=== PATIENT | female | born 1970 | race Caucasian/White ===

== ENCOUNTER 2017-11-11 13:44 | Observation (INO) | payer OTHER ==
[2017-11-11 13:50] VITALS: BP 105/58; PULSE 80; RESP 18; TEMP 97.4; O2SAT 100
--- NOTE | 2017-11-11 15:21 | RADRPT ---
EXAM DATE/TIME: 11/11/2017 14:35 [facility] COMPARISON: No previous studies available for comparison. INDICATIONS : Right sided facial numbness. RADIATION DOSE: 41.64 CTDIvol (mGy) MEDICAL HISTORY : None SURGICAL HISTORY : None. ENCOUNTER: Initial ACUITY: 1 day PAIN SCALE: 0/10 LOCATION: cranial TECHNIQUE: Multiple contiguous axial images were obtained of the head. Using automated exposure control and adj ustment of the mA and/or kV according to patient size, radiation dose was kept as low as reasonably a chievable to obtain optimal diagnostic quality images. DICOM format image data is available electro nically for review and comparison. FINDINGS: CEREBRUM: The ventricles are normal for age. No evidence of midline shift, mass lesion, hemorrhage or acute in farction. No extra-axial fluid collections are seen. POSTERIOR FOSSA: The cerebellum and brainstem are intact. The 4th ventricle is midline. The cerebellopontine angle i s unremarkable. EXTRACRANIAL: The visualized portion of the orbits is intact. SKULL: The calvaria is intact. No evidence of skull fracture. CONCLUSION: Negative for acute process. Edgar Larry MD FACR on November 11, 2017 at 15:18 Board Certified Radiologist. This report was verified electronically.
[2017-11-11 15:42] LABS: BASOPHIL # 0.1 TH/MM3 (0-0.2); BASOPHIL % 1.9 % (0.0-2.0); EOSINOPHIL # 0.3 TH/MM3 (0-0.4); EOSINOPHIL % 4.4 % (0.0-4.0); HEMATOCRIT 40.4 % (35.0-46.0); HEMOGLOBIN 13.6 GM/DL (11.6-15.3); LYMPH % 19.5 % (9.0-44.0); LYMPHOCYTE # 1.2 TH/MM3 (1.0-4.8); MEAN CELL VOLUME 91.3 FL (80.0-100.0); MEAN CORPUSCULAR HEMOGLOBIN 30.7 PG (27.0-34.0); MEAN CORPUSCULAR HGB CONC 33.7 % (32.0-36.0); MEAN PLATELET VOLUME 7.8 FL (7.0-11.0); MONO % 7.6 % (0.0-8.0); MONOCYTE # 0.5 TH/MM3 (0-0.9); NEUT % 66.6 % (16.0-70.0); PLATELET COUNT 400 TH/MM3 (150-450); RED BLOOD COUNT 4.42 MIL/MM3 (4.00-5.30); RED CELL DISTRIBUTION WIDTH 14.3 % (11.6-17.2)
[2017-11-11 15:54] LABS: INTERNATIONAL NORMALIZED RATIO 1.1 RATIO; PROTHROMBIN TIME - PATIENT 10.7 SEC (9.8-11.6)
[2017-11-11 16:03] LABS: ALBUMIN 3.8 GM/DL (3.4-5.0); ALT (GPT) 21 U/L (10-53); AST (GOT) 16 U/L (15-37); BICARBONATE 28.4 MEQ/L (21.0-32.0); BLOOD UREA NITROGEN 15 MG/DL (7-18); CALCIUM 8.8 MG/DL (8.5-10.1); CHLORIDE 102 MEQ/L (98-107); CREATININE 0.98 MG/DL (0.50-1.00); GLOMERULAR FILTRATION RATE 61 ML/MIN (>89); GLUCOSE,RANDOM 82 MG/DL (74-106); SODIUM (NA) 138 MEQ/L (136-145)
[2017-11-11 16:06] LABS: ALKALINE PHOSPHATASE 61 U/L (45-117); TOTAL BILIRUBIN ADULT 0.3 MG/DL (0.2-1.0); TOTAL PROTEIN 7.5 GM/DL (6.4-8.2); TROPONIN I LESS THAN 0.02 NG/ML (0.02-0.05)
[2017-11-11] MEDS ORDERED: DULO1CAP3 PO (18:12)
[2017-11-11] MEDS ORDERED: TOPA50TA7 PO (18:12)
[2017-11-11] MEDS ORDERED: WELLTAB39 PO (18:12)
[2017-11-11] MEDS ORDERED: CLON0.5T PO (18:13)
[2017-11-11] MEDS ORDERED: SUMA6INJ17 SQ (18:13)
[2017-11-11 18:14] VITALS: BP 107/58; PULSE 70; RESP 16; TEMP 97.8; O2SAT 99
--- NOTE | 2017-11-11 19:08 | PD ---
HPI Chief Complaint: Numbness/Tingling Time Seen by Provider: 18:24 Travel History International Travel<30 days: No Contact w/Intl Traveler<30days: No Traveled to known affect area: No History of Present Illness HPI 47-year-old female complains of slurred speech and right-sided facial weakness. Patient has history of migraine. Patient started noticing mild slurring the speech yesterday afternoon. Patient states that she was having weakness of the tongue. Patient states that she noticed right-sided facial drooping around the corner of the mouth this morning. Patient states that she has mild aching headache for last several days. Patient denies any visual change. Patient denies any neck pain. Patient denies any chest pain or shortness of breath. Patient denies abdominal pain. Patient denies any other focal weakness or numbness of the extremity. Patient had Botox injection for bilateral TMJ November 02. Patient last use of Imitrex for headache on the of this month. Patient denies a history of TIA or CVA. Patient denies history hypertension, diabetes, lymphedema. Patient is a non-smoker. PFSH Past Medical History Cerebrovascular Accident: No Diminished Hearing: No Neurologic: Yes Migraines: Yes Tetanus Vaccination: > 5 Years Influenza Vaccination: Yes ?: Not LMP: / : 0 Social History Alcohol Use: Yes (rare) Tobacco Use: No Substance Use: No Allergies-Medications (Allergen,Severity, Reaction): Coded Allergies: No Known Allergies (Unverified , 11/11/17) Reported Meds & Prescriptions Reported Meds & Active Scripts Active Reported Clonazepam 0.5 Mg Tab 0.5 Mg PO DAILY Sumatriptan Inj (Sumatriptan Succinate) 6 Mg/0.5 Ml Inj 6 Mg SQ ONCE PRN May repeat dose in 1 hour if needed. Duloxetine DR (Duloxetine HCl) 60 Mg Capdr 60 Mg PO DAILY Wellbutrin Xl 24 HR (Bupropion HCl) 300 Mg Tab 300 Mg PO DAILY Topamax (Topiramate) 50 Mg Tab 50 Mg PO DAILY Review of Systems General / Constitutional: No: Fever Eyes: No: Visual changes HENT: No: Headaches Cardiovascular: No: Chest Pain or Discomfort Respiratory: No: Shortness of Breath Gastrointestinal: No: Abdominal Pain Genitourinary: No: Dysuria Musculoskeletal: No: Pain Skin: No Rash Neurologic: Positive: Weakness, Slurred Speech Psychiatric: No: Depression Endocrine: No: Polydipsia Hematologic/Lymphatic: No: Easy Bruising Physical Exam Narrative GENERAL: Well-nourished, well-developed patient. SKIN: Focused skin assessment warm/dry. HEAD: Normocephalic. EYES: No scleral icterus. No injection or drainage. NECK: Supple, trachea midline. No JVD or lymphadenopathy. CARDIOVASCULAR: Regular rate and rhythm without murmurs, gallops, or rubs. RESPIRATORY: Breath sounds equal bilaterally. No accessory muscle use. GASTROINTESTINAL: Abdomen soft, non-tender, nondistended. MUSCULOSKELETAL: No cyanosis, or edema. BACK: Nontender without obvious deformity. No CVA tenderness. Neurologic exam normal.: Patient is awake alert oriented 3. Patient has some mild weakness right-sided corner of the mouth. Visual field intact. No obvious focal neurologic of the extremity. Data Data Last Documented VS Vital Signs Date Time Temp Pulse Resp B/P (MAP) Pulse Ox O2 Delivery O2 Flow Rate FiO2 11/11/17 18:14 97.8 70 16 107/58 (74) 99 Room Air Orders Orders Electrocardiogram (11/11/17 13:54) Prothrombin Time / Inr (Pt) (11/11/17 13:54) Act Partial Throm Time (Ptt) (11/11/17 13:54) Complete Blood Count With Diff (11/11/17 13:54) Comprehensive Metabolic Panel (11/11/17 13:54) Creatine Kinase (Cpk) (11/11/17 13:54) Troponin I (11/11/17 13:54) Ct Brain W/O Iv Contrast(Rout) (11/11/17 13:54) Mri Brain W/O Contrast (11/11/17 18:41) Mra Brain W/O Contrast (Cow) (11/11/17 18:41) Mra Carotids W Contrast (11/11/17 18:41) Labs Laboratory Tests Test 11/11/17 14:07 White Blood Count 6.0 TH/MM3 Red Blood Count 4.42 MIL/MM3 Hemoglobin 13.6 GM/DL Hematocrit 40.4 % Mean Corpuscular Volume 91.3 FL Mean Corpuscular Hemoglobin 30.7 PG Mean Corpuscular Hemoglobin Concent 33.7 % Red Cell Distribution Width 14.3 % Platelet Count 400 TH/MM3 Mean Platelet Volume 7.8 FL Neutrophils (%) (Auto) 66.6 % Lymphocytes (%) (Auto) 19.5 % Monocytes (%) (Auto) 7.6 % Eosinophils (%) (Auto) 4.4 % Basophils (%) (Auto) 1.9 % Neutrophils # (Auto) 4.0 TH/MM3 Lymphocytes # (Auto) 1.2 TH/MM3 Monocytes # (Auto) 0.5 TH/MM3 Eosinophils # (Auto) 0.3 TH/MM3 Basophils # (Auto) 0.1 TH/MM3 CBC Comment DIFF FINAL Differential Comment Prothrombin Time 10.7 SEC Prothromb Time International Ratio 1.1 RATIO Activated Partial Thromboplast Time 25.7 SEC Blood Urea Nitrogen 15 MG/DL Creatinine 0.98 MG/DL Random Glucose 82 MG/DL Total Protein 7.5 GM/DL Albumin 3.8 GM/DL Calcium Level 8.8 MG/DL Alkaline Phosphatase 61 U/L Aspartate Amino Transf (AST/SGOT) 16 U/L Alanine Aminotransferase (ALT/SGPT) 21 U/L Total Bilirubin 0.3 MG/DL Sodium Level 138 MEQ/L Potassium Level 3.7 MEQ/L Chloride Level 102 MEQ/L Carbon Dioxide Level 28.4 MEQ/L Anion Gap 8 MEQ/L Estimat Glomerular Filtration Rate 61 ML/MIN Total Creatine Kinase 78 U/L Troponin I LESS THAN 0.02 NG/ML MDM Medical Decision Making Medical Screen Exam Complete: Yes Emergency Medical Condition: Yes Differential Diagnosis Differential diagnosis including TIA, CVA, complex migraine, neuropathy. Narrative Course 47-year-old female with slurred speech and right-sided facial weakness. Aspirin 325 mg p.o. given. Normal saline solution 100 cc an hour. Head of bed 30. I spoke with Dr. Denney, neurologist on-call. We will proceed with MRI, MRA and echocardiogram. Patient will be admitted to the medical service. Thomas Whitt MD Nov 11, 2017 19:08
--- NOTE | 2017-11-11 19:29 | EKG ---
Date Performed: 11/11/2017 Time Performed: 14:03:06 PTAGE: 47 years EKG: Sinus rhythm Right bundle branch block ABNORMAL ECG NO PREVIOUS TRACING DOCTOR: Richard Lorenz Interpretating Date/Time 11/11/2017 19:28:32
[2017-11-11] MEDS ORDERED: GADODIAMIDE PF 287 MG/ML 20 ML VIAL (for RAD MRI) IVCONTRAST ONE (19:59)
[2017-11-11 20:41] VITALS: BP 114/69; PULSE 82; RESP 16; O2SAT 100
--- NOTE | 2017-11-11 20:42 | RADRPT ---
EXAM DATE/TIME: 11/11/2017 19:37 [facility] COMPARISON: No previous studies available for comparison. INDICATIONS : CVA. Right facial droop. MEDICAL HISTORY : Migraines. SURGICAL HISTORY : Toe fusion. ENCOUNTER: Subsequent ACUITY: 1 day PAIN SCORE: 3/10 LOCATION: head. TECHNIQUE: Multiplanar, multisequence MRI of the brain was performed without contrast. FINDINGS: CEREBRUM: The ventricles are normal for age. No evidence of midline shift, mass lesion, hemorrhage or acute in farction. No extraaxial fluid collections are seen. The pituitary gland and suprasellar cistern are normal in configuration. WHITE MATTER: Minimal signal abnormalities are seen in the white matter. POSTERIOR FOSSA: The cerebellum and brainstem are intact. The 4th ventricle is midline. The cerebellopontine angle is unremarkable. The cerebellar tonsils are normal in position. DIFFUSION IMAGING: No focal areas of restricted diffusion are seen. No evidence of acute infarction. EXTRACRANIAL: The visualized portions of the orbits and paranasal sinuses are unremarkable. CONCLUSION: 1. No acute findings. No evidence for recent infarction. Several scattered tiny white matter signal a bnormalities commonly seen at this age. Mike Angel MD on November 11, 2017 at 20:35 Board Certified Radiologist. This report was verified electronically.
--- NOTE | 2017-11-11 21:07 | RADRPT ---
EXAM DATE/TIME: 11/11/2017 19:37 [facility] COMPARISON: No previous studies available for comparison. INDICATIONS : Stenosis. CONTRAST: 20 cc Omniscan (gadodiamide) IV MEDICAL HISTORY : Migraines. SURGICAL HISTORY : Toe fusion. ENCOUNTER: Subsequent ACUITY: 1 day PAIN SCORE: 0/10 LOCATION: neck. Percent stenosis is calculated using the diameter of the stenotic region over the diameter of the nor mal distal internal carotid artery. TECHNIQUE: Bolus infused MRA of the extracranial circulation was performed using a neurovascular coil. Post pro cessing was performed including rotating subvolume maximum intensity projections of each carotid peterson ry, rotating full volume maximum intensity projections of both carotid arteries, sagittal and coronal sliding thin slab reformations of each carotid artery, and left oblique sliding thin slab reformatio n through the aortic arch to include the origin of the arch branch vessels. FINDINGS: AORTIC ARCH: There is a three vessel origin of the great vessels from the aorta. No evidence of ostial narrowing. RIGHT CAROTID: The common carotid artery is intact. The carotid bulb has a normal configuration without ulceration or narrowing. The internal carotid artery lumen is smooth without stenosis. The external carotid ar judy is intact. LEFT CAROTID: The common carotid artery is intact. The carotid bulb has a normal configuration without ulceration or narrowing. The internal carotid artery lumen is smooth without stenosis. The external carotid ar judy is intact. VERTEBRALS: The vertebral arteries have a symmetric diameter. No stenotic lesions are seen. CONCLUSION: Normal examination for a patient of this age. Mike Angel MD on November 11, 2017 at 21:03 Board Certified Radiologist. This report was verified electronically.
--- NOTE | 2017-11-11 21:08 | RADRPT ---
EXAM DATE/TIME: 11/11/2017 19:37 [facility] COMPARISON: No previous studies available for comparison. INDICATIONS : CVA. Right facial droop. MEDICAL HISTORY : Migraines. SURGICAL HISTORY : Toe fusion. ENCOUNTER: Subsequent ACUITY: 1 day PAIN SCORE: 3/10 LOCATION: head. Please note a normal MRA of the brain does not entirely exclude the possibility of a small aneurysm, nor the possibility of distal intracranial vessel disease. TECHNIQUE: 3D time of flight MRA was performed. Source images, multiplanar STS MIP, and 3D volume MIP reconstru ctions were reviewed. FINDINGS: There is excellent visualization of the major intracranial arteries out to the second-order branch ve ssels. There is no evidence for aneurysm, vessel truncation or stenosis, and no evidence for vascula r malformation. CONCLUSION: Normal examination for a patient of this age. Mike Angel MD on November 11, 2017 at 21:05 Board Certified Radiologist. This report was verified electronically.
[2017-11-11] MEDS ORDERED: SODIUM CHLORIDE 0.9% FLUSH 10 ML FLUSH IV FLUSH PRN (22:15)
--- NOTE | 2017-11-11 22:17 | HHI.HP ---
HPI Service [facility] Hospitalists Primary Care Physician Concepción Cuba MD Admission Diagnosis Right-sided facial weakness. Cephalgia. Chief Complaint: slurred speech, right lower facial droop Travel History International Travel<30 Days: No Contact w/Intl Traveler <30 Da: No Traveled to Known Affected Are: No History of Present Illness 47-year-old female with anxiety/depression, migraine h/a presents to ER with complaint of slurred speech and right-sided facial weakness. She has migraine with aura, but has never had any problem with speech or facial sensation before. 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 Patient states that she was having weakness and numbness of the right distal tongue. Patient states that she noticed right-sided facial drooping around the corner of the mouth this morning. Patient states that she has mild aching headache for last several days but not as severe as her typical migraines. Patient denies any visual change. Patient denies any neck pain. Patient denies any chest pain or shortness of breath. Patient denies abdominal pain. Patient denies any other focal weakness or numbness of the extremity. Patient had Botox injection for bilateral TMJ November 02. Patient last use of Imitrex injection for headache on the of this month. Patient denies a history of TIA or CVA but her mother had TIAs apparently. Patient denies history hypertension, diabetes, lymphedema. Patient is a non-smoker. Review of Systems Constitutional: DENIES: Diaphoretic episodes, Fatigue, Fever, Weight gain, Weight loss, Chills, Dizziness, Change in appetite, Night Sweats Eyes: DENIES: Blurred vision, Diplopia, Eye inflammation, Eye pain, Vision loss , Photosensitivity, Double Vision Ears, nose, mouth, throat: DENIES: Tinnitus, Hearing loss, Vertigo, Nasal discharge, Oral lesions, Throat pain, Hoarseness, Ear Pain, Running Nose, Epistaxis, Sinus Pain, Toothache, Odynophagia Respiratory: DENIES: Apneas, Cough, Snoring, Wheezing, Hemoptysis, Sputum production, Shortness of breath Cardiovascular: DENIES: Chest pain, Palpitations, Syncope, Dyspnea on Exertion , PND, Lower Extremity Edema, Orthopnea, Claudication Gastrointestinal: DENIES: Abdominal pain, Black stools, Bloody stools, BRB per rectum, Constipation, Diarrhea, GERD, Nausea, Reflux, Vomiting, Difficulty Swallowing, Anorexia, See HPI Integumentary: DENIES: Abnormal pigmentation, Pruritus, Rash, Nail changes, Breast masses, Breast skin changes, Nipple discharge Hematologic/lymphatic: DENIES: Bruising, Lymphadenopathy Immunologic/allergic: DENIES: Eczema, Urticaria Neurologic: COMPLAINS OF: Headache, Localized weakness, Speech Problems, DENIES : Abnormal gait, Paresthesias, Seizures, Tremor, Poor Balance Psychiatric: COMPLAINS OF: Anxiety, Depression, DENIES: Confusion, Mood changes , Hallucinations, Agitation, Suicidal Ideation, Homicidal Ideation, Delusions, History of Bipolar, History of Schizophrenia Past Family Social History Past Medical History Anxiety classic migraine with aura Major depressive disorder Past Surgical History None Reported Medications Clonazepam 0.5 Mg Tab 0.5 Mg PO DAILY as needed for anxiety or insomnia Sumatriptan Inj (Sumatriptan Succinate) 6 Mg/0.5 Ml Inj 6 Mg SQ ONCE PRN May repeat dose in 1 hour if needed. 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 SKIN: No rashes, ecchymoses or lesions. Cool and dry. HEAD: Atraumatic. Normocephalic. No temporal or scalp tenderness. EYES: Pupils equal round and reactive. Extraocular motions intact. No scleral icterus. No injection or drainage. ENT: Nose without bleeding, purulent drainage or septal hematoma. Throat without erythema, tonsillar hypertrophy or exudate. Uvula midline. Airway patent. NECK: Trachea midline. No JVD or lymphadenopathy. Supple, nontender, no meningeal signs. CARDIOVASCULAR: Regular rate and rhythm without murmurs, gallops, or rubs. RESPIRATORY: Clear to auscultation. Breath sounds equal bilaterally. No wheezes , rales, or rhonchi. GASTROINTESTINAL: Abdomen soft, non-tender, nondistended. No hepato-splenomegaly , or palpable masses. No guarding. MUSCULOSKELETAL: Extremities without clubbing, cyanosis, or edema. No joint tenderness, effusion, or edema noted. No calf tenderness. Negative Homans sign bilaterally. NEUROLOGICAL: Awake and alert. Cranial nerves II through XII intact. Motor and sensory grossly within normal limits. Five out of 5 muscle strength in all muscle groups. Normal speech. Laboratory Laboratory Tests Test 11/11/17 14:07 White Blood Count 6.0 Red Blood Count 4.42 Hemoglobin 13.6 Hematocrit 40.4 Mean Corpuscular Volume 91.3 Mean Corpuscular Hemoglobin 30.7 Mean Corpuscular Hemoglobin Concent 33.7 Red Cell Distribution Width 14.3 Platelet Count 400 Mean Platelet Volume 7.8 Neutrophils (%) (Auto) 66.6 Lymphocytes (%) (Auto) 19.5 Monocytes (%) (Auto) 7.6 Eosinophils (%) (Auto) 4.4 Basophils (%) (Auto) 1.9 Neutrophils # (Auto) 4.0 Lymphocytes # (Auto) 1.2 Monocytes # (Auto) 0.5 Eosinophils # (Auto) 0.3 Basophils # (Auto) 0.1 CBC Comment DIFF FINAL Differential Comment Prothrombin Time 10.7 Prothromb Time International Ratio 1.1 Activated Partial Thromboplast Time 25.7 Blood Urea Nitrogen 15 Creatinine 0.98 Random Glucose 82 Total Protein 7.5 Albumin 3.8 Calcium Level 8.8 Alkaline Phosphatase 61 Aspartate Amino Transf (AST/SGOT) 16 Alanine Aminotransferase (ALT/SGPT) 21 Total Bilirubin 0.3 Sodium Level 138 Potassium Level 3.7 Chloride Level 102 Carbon Dioxide Level 28.4 Anion Gap 8 Estimat Glomerular Filtration Rate 61 Total Creatine Kinase 78 Troponin I LESS THAN 0.02 Result Diagram: 11/11/17 1407 11/11/17 1407 Imaging Last 72 hours Impressions Neck Magnetic Resonance Angiography 11/11/171840 Signed Impressions: Service Date/Time: Saturday, November 11, 2017 19:37 - CONCLUSION: Normal examination for a patient of this age. Mike Angel MD Head Magnetic Resonance Angiography 11/11/171840 Signed Impressions: Service Date/Time: Saturday, November 11, 2017 19:37 - CONCLUSION: Normal examination for a patient of this age. Mike Angel MD Brain MRI 11/11/171840 Signed Impressions: Service Date/Time: Saturday, November 11, 2017 19:37 - CONCLUSION: 1. No acute findings. No evidence for recent infarction. Several scattered tiny white matter signal abnormalities commonly seen at this age. Mike Angel MD Head CT 11/11/17 1354 Signed Impressions: Service Date/Time: Saturday, November 11, 2017 14:35 - CONCLUSION: Negative for acute process. Edgar Larry MD FACR Caprini VTE Risk Assessment Caprini VTE Risk Assessment: No/Low Risk (score <= 1) Caprini Risk Assessment Model Point Value = 1 Point Value = 2 Point Value = 3 Point Value = 5 Age 41-60 Minor surgery BMI > 25 kg/m2 Swollen legs Varicose veins or History of unexplained or recurrent spontaneous Oral contraceptives or hormone replacement Sepsis (< 1 month) Serious lung disease, including pneumonia (< 1 month) Abnormal pulmonary function Acute myocardial infarction Congestive heart failure (< 1 month) History of inflammatory bowel disease Medical patient at bed rest Age 61-74 Arthroscopic surgery Major open surgery (> 45 min) Laparoscopic surgery (> 45 min) Malignancy Confined to bed (> 72 hours) Immobilizing plaster cast Central venous access Age >= 75 History of VTE Family history of VTE Factor V Leiden Prothrombin [id number] Lupus anticoagulant Anticardiolipin antibodies Elevated serum homocysteine Heparin-induced thrombocytopenia Other congenital or acquired thrombophilia Stroke (< 1 month) Elective arthroplasty Hip, pelvis, or leg fracture Acute spinal cord injury (< 1 month) Prophylaxis Regimen Total Risk Factor Score Risk Level Prophylaxis Regimen 0-1 Low Early ambulation 2 Moderate Order ONE of the following: *Sequential Compression Device (SCD) *Heparin 5000 units SQ BID 3-4 Higher Order ONE of the following medications: *Heparin 5000 units SQ TID *Enoxaparin/Lovenox 40 mg SQ daily (WT < 150 kg, CrCl > 30 mL/min) *Enoxaparin/Lovenox 30 mg SQ daily (WT < 150 kg, CrCl > 10-29 mL/min) *Enoxaparin/Lovenox 30 mg SQ BID (WT < 150 kg, CrCl > 30 mL/min) AND/OR *Sequential Compression Device (SCD) 5 or more Highest Order ONE of the following medications: *Heparin 5000 units SQ TID (Preferred with Epidurals) *Enoxaparin/Lovenox 40 mg SQ daily (WT < 150 kg, CrCl > 30 mL/min) *Enoxaparin/Lovenox 30 mg SQ daily (WT < 150 kg, CrCl > 10-29 mL/min) *Enoxaparin/Lovenox 30 mg SQ BID (WT < 150 kg, CrCl > 30 mL/min) AND *Sequential Compression Device (SCD) Assessment and Plan Problem List: (1) Dysarthria ICD Codes: R47.1 - Dysarthria and anarthria Status: Acute Plan: Seems to have improved and no focal neurologic deficits noted on my exam. Studies thus far negative. ER physician contacted neurologist occupational therapist assistant and echo was recommended. (2) Generalized anxiety disorder ICD Codes: F41.1 - Generalized anxiety disorder Status: Chronic Plan: Fair control. Continue medication. (3) Major depressive disorder ICD Codes: F32.9 - Major depressive disorder, single episode, unspecified Status: Chronic Plan: Continue medication. (4) Migraine with aura ICD Codes: G43.109 - Migraine with aura, not intractable, without status migrainosus Status: Chronic Plan: Continue medication. Fairly well controlled. Less than 2 headaches per month. Code Status Full Discussed Condition With Patient and ER provider. Problem Qualifiers (1) Major depressive disorder: Qualified Codes: F33.41 - Major depressive disorder, recurrent, in partial remission (2) Migraine with aura: Qualified Codes: G43.109 - Migraine with aura, not intractable, without status migrainosus Roman Mejia MD PhD Nov 11, 2017 22:17
[2017-11-12 01:37] VITALS: BP 101/61; PULSE 73; RESP 14; TEMP 98.1; O2SAT 95
[2017-11-12 06:36] LABS: CHOLESTEROL/ HDL RATIO 1.57 RATIO; HDL CHOLESTEROL 89.3 MG/DL (40.0-60.0)
[2017-11-12 08:14] VITALS: PULSE 82
[2017-11-12 08:46] VITALS: BP 109/95; PULSE 70; RESP 20; TEMP 97.1; O2SAT 98
[2017-11-12] MEDS ORDERED: TOPIRAMATE 25 MG TAB PO SCH (09:00)
[2017-11-12] MEDS ORDERED: SODIUM CHLORIDE 0.9% FLUSH 10 ML FLUSH IV FLUSH SCH (09:00)
[2017-11-12] MEDS ORDERED: buPROPion HCL 150 MG SUSTAINED RELEASE TAB PO SCH (09:00)
[2017-11-12] MEDS ORDERED: DULoxetine HCl DR 60 MG CAP PO SCH (09:00)
[2017-11-12] MEDS ORDERED: ASPIRIN 81 MG CHEW TAB PO SCH (09:00)
--- NOTE | 2017-11-12 09:17 | MB ---
cc: Tay Enamorado MD DATE: 11/12/2017 HISTORY OF PRESENT ILLNESS: A 47-year-old left-handed woman with a history of migraine, some depression. She does not take an aspirin a day. She takes Wellbutrin, Topamax and Cymbalta. 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 She said it lasted about 2 minutes and then went away and maybe happened about 5 times over the rest of the day intermittently. Yesterday morning she woke up and felt like there were less wrinkles on the right side of her face, maybe it was slightly droopy and then came in the hospital. She notes that her mother had a history of stroke, seizure and PFO closure. No chest pain, palpitations or headache or scintillations when it occurred. The ER said she had some mild weakness on the right side corner of her mouth when they saw her, but not noted when the primary care saw her yesterday. REVIEW OF SYSTEMS: She denies any hypertension, diabetes, hypercholesterolemia, MD, stent angioplasty, atrial fibrillation coumadin, renal, hepatic or pulmonary disease, thyroid disease, lupus ulcer cancer, seizure, or stroke. SOCIAL HISTORY: Not a smoker. Occasionally has a drink. No drugs. Lives with a rooming person. FAMILY HISTORY: Positive for seizure and stroke in her mother. Negative for miscarriages or blood clots in herself or others. Father has a history of migraines. PAST MEDICAL HISTORY: As above, also a history of TMJ injection 11/02/2017 bilaterally. MEDICATIONS: She takes Klonopin p.r.n. Imitrex injection p.r.n., duloxetine, Wellbutrin, Topamax. The last Imitrex injection was 11/04/2017. ALLERGIES: NO KNOWN DRUG ALLERGIES. PHYSICAL EXAM: GENERAL: The ER said she had some mild weakness on the right side corner of her mouth when they saw her, but not noted when the primary care saw her yesterday. VITAL SIGNS: On exam, she is sinus rhythm. Afebrile, 73, 14, 101/61. NECK: There were no carotid bruits. HEART: Regular rate and rhythm. I did not detect a murmur. NEUROLOGIC: Pupils are equal, visual guillermo are full. Extraocular movements intact without nystagmus. Face is symmetric with normal sensation. I do not see any right facial droop. Buccal muscles are intact. Eye closure muscles normal. She smiles symmetrically. Her speech is clear. There is no slurring. The facial sensation was intact to pinprick. Tongue was midline. There was no drift. Normal strength in the upper and lower extremities bilaterally. DTRs trace throughout. Toes downgoing bilaterally. Pinprick is intact throughout including the right side of the face. She is not ataxic on [id number]. LABORATORY DATA: CBC is normal. Basic metabolic profile was normal. LFTs, CPK, troponin albumin LDL cholesterol, coags all normal. She had a CAT scan of the brain, which was read as negative. She had an MRA of the [place] that was read as normal. She had an MRA of the neck that was read as normal. She had an MRI of the brain with some mild white matter changes. Review of the films showed there is a very tiny white matter change on the right side of the brain. Diffusion image is normal. No hemorrhages noted. MRA of the neck, she is left vertebral dominant. The right vertebral does appear to be patent. Carotids looked fine. Basilar arteries are normal. MRA of the head normal including the left MCA. IMPRESSION: I am not sure if there was all that much going on that it was strong evidence for a TIA. I do not see any facial droop now. Evidently the ER did see some. On the basis of that, I would start her on a baby aspirin a day. She is worried she could have a PFO. We could have cardiology see her and get a ROBERT. We will check a hypercoagulable screen on her and some other lab work. If she could be on a different antidepressant than Wellbutrin, I think it would be good as that can cause seizures and I would defer to the med team whether they want to switch her off of that maybe increase her Cymbalta and we will get a Holter monitor on her, but overall I thought she looked fairly well neurologically and if she gets a ROBERT which is negative, she can be discharged on the aspirin. MD VIVIAN Pink/JAMIN , 08:31 AM , 09:15 AM
--- NOTE | 2017-11-12 09:26 | HHI.PR ---
Subjective Remarks Pt overall feeling better. She still has some speech difficulty with certain letters but feels that she is mostly back to baseline Pt reports that her mother had a PFO and had several TIAs and CVAs Pt has been in NSR on telemetry Objective Vitals Vital Signs Date Time Temp Pulse Resp B/P (MAP) Pulse Ox O2 Delivery O2 Flow Rate FiO2 11/12/17 08:46 97.1 70 20 109/95 (100) 98 11/12/17 01:37 98.1 73 14 101/61 (74) 95 11/11/17 20:41 82 16 114/69 (84) 100 Room Air 11/11/17 18:14 97.8 70 16 107/58 (74) 99 Room Air 11/11/17 18:14 70 16 99 Room Air 11/11/17 13:50 97.4 80 18 105/58 (74) 100 Result Diagram: 11/11/17 1407 11/11/17 1407 Other Results Laboratory Tests Test 11/11/17 14:07 11/12/17 05:16 White Blood Count 6.0 TH/MM3 Red Blood Count 4.42 MIL/MM3 Hemoglobin 13.6 GM/DL Hematocrit 40.4 % Mean Corpuscular Volume 91.3 FL Mean Corpuscular Hemoglobin 30.7 PG Mean Corpuscular Hemoglobin Concent 33.7 % Red Cell Distribution Width 14.3 % Platelet Count 400 TH/MM3 Mean Platelet Volume 7.8 FL Neutrophils (%) (Auto) 66.6 % Lymphocytes (%) (Auto) 19.5 % Monocytes (%) (Auto) 7.6 % Eosinophils (%) (Auto) 4.4 % Basophils (%) (Auto) 1.9 % Neutrophils # (Auto) 4.0 TH/MM3 Lymphocytes # (Auto) 1.2 TH/MM3 Monocytes # (Auto) 0.5 TH/MM3 Eosinophils # (Auto) 0.3 TH/MM3 Basophils # (Auto) 0.1 TH/MM3 CBC Comment DIFF FINAL Differential Comment Prothrombin Time 10.7 SEC Prothromb Time International Ratio 1.1 RATIO Activated Partial Thromboplast Time 25.7 SEC Blood Urea Nitrogen 15 MG/DL Creatinine 0.98 MG/DL Random Glucose 82 MG/DL Total Protein 7.5 GM/DL Albumin 3.8 GM/DL Calcium Level 8.8 MG/DL Alkaline Phosphatase 61 U/L Aspartate Amino Transf (AST/SGOT) 16 U/L Alanine Aminotransferase (ALT/SGPT) 21 U/L Total Bilirubin 0.3 MG/DL Sodium Level 138 MEQ/L Potassium Level 3.7 MEQ/L Chloride Level 102 MEQ/L Carbon Dioxide Level 28.4 MEQ/L Anion Gap 8 MEQ/L Estimat Glomerular Filtration Rate 61 ML/MIN Total Creatine Kinase 78 U/L Troponin I LESS THAN 0.02 NG/ML Triglycerides Level 49 MG/DL Cholesterol Level 141 MG/DL LDL Cholesterol 42 MG/DL HDL Cholesterol 89.3 MG/DL Cholesterol/HDL Ratio 1.57 RATIO Imaging Last 72 hours Impressions Neck Magnetic Resonance Angiography 11/11/171840 Signed Impressions: Service Date/Time: Saturday, November 11, 2017 19:37 - CONCLUSION: Normal examination for a patient of this age. Mike Angel MD Head Magnetic Resonance Angiography 11/11/171840 Signed Impressions: Service Date/Time: Saturday, November 11, 2017 19:37 - CONCLUSION: Normal examination for a patient of this age. Mike Angel MD Brain MRI 11/11/171840 Signed Impressions: Service Date/Time: Saturday, November 11, 2017 19:37 - CONCLUSION: 1. No acute findings. No evidence for recent infarction. Several scattered tiny white matter signal abnormalities commonly seen at this age. Mike Angel MD Head CT 11/11/17 1354 Signed Impressions: Service Date/Time: Saturday, November 11, 2017 14:35 - CONCLUSION: Negative for acute process. Edgar Larry MD FACR Objective Remarks General: NAD, AAOx3 Chest: CTA Cardiac: Regular Abd: +BS, soft ND/NT Ext: No edema Neuro: MAREK, muscle strength equal bilaterally, speech normal A/P Problem List: (1) Dysarthria ICD Codes: R47.1 - Dysarthria and anarthria Status: Acute Plan: - Pt is a 47 y/o female with hx of migraine headaches with auras and TMJ who presented to the ED on 11/11/17 with complaints of dysarthria and right sided facial droop that began on 11/10/17 thought to possibly be a TIA. Pt reportedly had Botox injections for TMJ bilaterally on 11/02/17. - Pts symptoms have improved and no focal neurologic deficits noted on exam following admission. - Head CT (11/11) --> Negative - MRI/MRA Brain (11/11) --> No acute findings. No evidence for recent infarction. Several scattered tiny white matter signal abnormalities commonly seen at this age. - MRA Neck (11/11) --> Negative. - Telemetry with NSR, no obvious A. fib - Holter is in place - Neurology consulted - Hypercoagulable workup ordered by Neurology - Pt requested Cardiology consult for SHARI because her mother had several TIA/ CVAs before PFO was found - LDL Cholesterol 42, HDL 89 - ASA 81mg daily - PT/ST/OT ordered - Supportive care ADDENDUM: - Pt was evaluated by Cardiology and she cheli complete the 24 hour event monitor as an outpt, this was placed prior to discharge. Cardiology recommended to have an outpt 21 day event monitor which [facility] Cardiology office is going to call to schedule, per our conversation with Dr. Galloway. - Cardiology states that inpatient 2D echo can be cancelled as she will followup outpt for further cardiac workup. - Pt will followup with Dr. Galloway on 11/24/17 @ 3:20PM (appt scheduled prior to discharge) and they will discuss possible SHARI at that time - Pt will need to followup with Dr. Enamorado for results of hypercoagulable workup. - She will continue on ASA 81mg po daily for now - Pt will followup with her PCP, Dr. Cuba, in 1 week. She is to schedule appt upon discharge. (2) Generalized anxiety disorder ICD Codes: F41.1 - Generalized anxiety disorder Status: Chronic Plan: - Continue home medication. (3) Major depressive disorder ICD Codes: F32.9 - Major depressive disorder, single episode, unspecified Status: Chronic Plan: - Continue home medication. (4) Migraine with aura ICD Codes: G43.109 - Migraine with aura, not intractable, without status migrainosus Status: Chronic Plan: - Continue medication. - Fairly well controlled. - Less than 2 headaches per month. Assessment and Plan Patient examined. Assessment and plan formulated with Cece Jade PA-C. I agree with the above. transient right facial droop. possible tia. not obviously a migraine and not William's. Did have botox bilaterally jaws for tmj on 11/02...not clearly related but pt will f/u with that physician upon d/c. cont asa. f/u hypecoag panel with neurologist and pcp. spoke with cardiology and f/u appt/event/shari will be scheduled. Problem Qualifiers (1) Major depressive disorder: Qualified Codes: F33.41 - Major depressive disorder, recurrent, in partial remission (2) Migraine with aura: Qualified Codes: G43.109 - Migraine with aura, not intractable, without status migrainosus Cece Jade Nov 12, 2017 09:26 Jose L Camilo MD Nov 12, 2017 15:45
--- NOTE | 2017-11-12 11:37 | PD.CONS ---
HPI Consult Requested By Primary Care Physician Concepción Cuba MD History of Present Illness 47-year-old female with a past medical history of anxiety/depression and migraines who presented for right-sided facial weakness. The patient feels like since Thursday she's been feeling like her right face is drooping, states her mother noticed this as well. She feels like this is improving, but not yet resolved. She is concerned because her mother had a history of TIA/CVA sent her 50s with subsequent PFO closure. She denies any prior episodes of TIA/CVA- like symptoms. She has history of chronic palpitations that occur less frequently than a monthly and lasts for 1 or 2 minutes at a time and denies any recent change in frequency. Telemetry and EKG have been unremarkable here. She denies any chest pain or shortness of breath. Neurology has consulted us to evaluate for possible ROBERT. (Reinaldo Spencer) Review of Systems Negative except as stated in the history of present illness (Reinaldo Spencer) Past Family Social History Allergies: Coded Allergies: No Known Allergies (Unverified , 11/11/17) Past Medical History Anxiety classic migraine with aura Major depressive disorder Past Surgical History None Reported Medications Reported Meds & Active Scripts Active Reported Clonazepam 0.5 Mg Tab 0.5 Mg PO DAILY Sumatriptan Inj (Sumatriptan Succinate) 6 Mg/0.5 Ml Inj 6 Mg SQ ONCE PRN May repeat dose in 1 hour if needed. Duloxetine DR (Duloxetine HCl) 60 Mg Capdr 60 Mg PO DAILY Wellbutrin Xl 24 HR (Bupropion HCl) 300 Mg Tab 300 Mg PO DAILY Topamax (Topiramate) 50 Mg Tab 50 Mg PO DAILY Active Ordered Medications Current Medications Medications (Trade) Dose Ordered Sig/Christelle Route Start Time Stop Time Status Last Admin (NS Flush) 2 ml BID IV FLUSH 11/12/17 09:00 11/12/17 09:40 (NS Flush) 2 ml UNSCH PRN IV FLUSH 11/11/17 22:15 (Aspirin Chew) 81 mg DAILY PO 11/12/17 09:00 11/12/17 09:40 (Wellbutrin Sr) 300 mg DAILY PO 11/12/17 09:00 11/12/17 09:40 (Cymbalta Dr) 60 mg DAILY PO 11/12/17 09:00 11/12/17 09:40 (Topamax) 50 mg DAILY PO 11/12/17 09:00 11/12/17 09:40 Family History Mother has seizures and TIA/CVA Social History 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 [employer] No tobacco Drinks alcohol approximately 1-2 times per week Originally from [facility], she has been in this area for 6 years She is single and has no children denies illicit drug use (Reinaldo Spencer) Physical Exam Vital Signs Vital Signs Date Time Temp Pulse Resp B/P (MAP) Pulse Ox O2 Delivery O2 Flow Rate FiO2 11/12/17 08:46 97.1 70 20 109/95 (100) 98 11/12/17 08:14 82 11/12/17 01:37 98.1 73 14 101/61 (74) 95 11/11/17 20:41 82 16 114/69 (84) 100 Room Air 11/11/17 18:14 97.8 70 16 107/58 (74) 99 Room Air 11/11/17 18:14 70 16 99 Room Air 11/11/17 13:50 97.4 80 18 105/58 (74) 100 Physical Exam GENERAL: Well-developed well-nourished. In no acute distress. NECK: No carotid bruits. No JVD. CARDIOVASCULAR: Regular rate and rhythm. No murmur appreciated. RESPIRATORY: No accessory muscle use. Clear to auscultation. Breath sounds equal bilaterally. MUSCULOSKELETAL: No clubbing or cyanosis. No edema. NEUROLOGICAL: Awake and alert. Normal speech. No facial asymmetry noted. Laboratory Laboratory Tests Test 11/11/17 14:07 11/12/17 05:16 11/12/17 10:43 White Blood Count 6.0 Red Blood Count 4.42 Hemoglobin 13.6 Hematocrit 40.4 Mean Corpuscular Volume 91.3 Mean Corpuscular Hemoglobin 30.7 Mean Corpuscular Hemoglobin Concent 33.7 Red Cell Distribution Width 14.3 Platelet Count 400 Mean Platelet Volume 7.8 Neutrophils (%) (Auto) 66.6 Lymphocytes (%) (Auto) 19.5 Monocytes (%) (Auto) 7.6 Eosinophils (%) (Auto) 4.4 Basophils (%) (Auto) 1.9 Neutrophils # (Auto) 4.0 Lymphocytes # (Auto) 1.2 Monocytes # (Auto) 0.5 Eosinophils # (Auto) 0.3 Basophils # (Auto) 0.1 CBC Comment DIFF FINAL Differential Comment Prothrombin Time 10.7 Prothromb Time International Ratio 1.1 Activated Partial Thromboplast Time 25.7 Blood Urea Nitrogen 15 Creatinine 0.98 Random Glucose 82 Total Protein 7.5 Albumin 3.8 Calcium Level 8.8 Alkaline Phosphatase 61 Aspartate Amino Transf (AST/SGOT) 16 Alanine Aminotransferase (ALT/SGPT) 21 Total Bilirubin 0.3 Sodium Level 138 Potassium Level 3.7 Chloride Level 102 Carbon Dioxide Level 28.4 Anion Gap 8 Estimat Glomerular Filtration Rate 61 Total Creatine Kinase 78 Troponin I LESS THAN 0.02 Triglycerides Level 49 Cholesterol Level 141 LDL Cholesterol 42 HDL Cholesterol 89.3 Cholesterol/HDL Ratio 1.57 Erythrocyte Sedimentation Rate 9 (Reinaldo Spencer) Result Diagram: 11/11/17 1407 11/11/17 1407 Imaging Last Impressions Neck Magnetic Resonance Angiography 11/11/171840 Signed Impressions: Service Date/Time: Saturday, November 11, 2017 19:37 - CONCLUSION: Normal examination for a patient of this age. Mike Angel MD Head Magnetic Resonance Angiography 11/11/171840 Signed Impressions: Service Date/Time: Saturday, November 11, 2017 19:37 - CONCLUSION: Normal examination for a patient of this age. Mike Angel MD Brain MRI 11/11/171840 Signed Impressions: Service Date/Time: Saturday, November 11, 2017 19:37 - CONCLUSION: 1. No acute findings. No evidence for recent infarction. Several scattered tiny white matter signal abnormalities commonly seen at this age. Mike Angel MD Head CT 11/11/17 1354 Signed Impressions: Service Date/Time: Saturday, November 11, 2017 14:35 - CONCLUSION: Negative for acute process. Edgar Larry MD FACR (Reinaldo Spencer) Assessment and Plan Assessment and Plan Possible TIA: Workup negative for CVA. Likely outpatient follow-up evaluation for possible heart rhythm monitoring and/or ROBERT. Started on ASA. Discussed Condition With Patient, Dr. Galloway (Reinaldo Spencer) Assessment and Plan if neurology feels strongly symptoms are TIA, then proceed with workup; imaging negative if we proceed with workup and incidentally find PFO, then we are comitting her to anticoagulation indefinitely or invasive procedure for closure ROBERT and event monitor can be scheduled as outpatient (Eben Galloway MD) Reinaldo Spencer Nov 12, 2017 11:37 Eben Galloway MD Nov 12, 2017 12:33
[2017-11-12 11:45] LABS: RHEUMATOID FACTOR SCREEN NEGATIVE (NEGATIVE)
[2017-11-12 11:55] LABS: FREE T4 0.91 NG/DL (0.76-1.46)
[2017-11-12 11:57] LABS: FOLATE GREATER THAN 20.0 NG/ML (3.1-17.5)
[2017-11-12 12:23] VITALS: PULSE 76
[2017-11-12] MEDS ORDERED: ASPI81 PO (15:02)
--- NOTE | 2017-11-12 15:05 | HHI.DCPOC ---
Discharge Care Plan Diagnosis: (1) Dysarthria (2) Migraine with aura (3) Generalized anxiety disorder (4) Major depressive disorder Goals to Promote Your Health - Followup with Dr. Cuba in 1 week, call for an appt - Followup with Dr. Enamorado in 7-10 days, call for an appt. - Followup with Dr. Galloway within 1 week, call for an appt. - Cont. Aspirin 81mg once daily Directions to Meet Your Goals Take your medications as prescribed Follow your dietary instruction Follow activity as directed Keep your appointments as scheduled Take your immunizations and boosters as scheduled If your symptoms worsen call your PCP, if no PCP go to Urgent Care Center or Emergency Room Smoking is Dangerous to Your Health. Avoid second hand smoke Call the 24-hour hour crisis hotline for domestic abuse at Cece Jade Nov 12, 2017 15:05
[2017-11-12 16:05] VITALS: PULSE 81
[2017-11-12 16:41] VITALS: BP 115/76; PULSE 78; RESP 20; TEMP 98; O2SAT 96
[2017-11-13 14:54] LABS: CARDIOLIPIN IGG AB <9.4 GPL; CARDIOLIPIN IGM AB 12.8 MPL
[2017-11-13 16:43] LABS: ANA SCREEN NEG (NEG)
[2017-11-13 17:26] LABS: PROTEIN C ACTIVITY 132 % (70 - 150); PROTEIN S ACTIVITY 130 % (50 - 160)
--- NOTE | 2017-11-13 18:38 | HM ---
Date Performed: 11/13/2017 Time Performed: 09:50:00 HOOKUP DATE: 11/13/17 09:50:00 AM Fri ANALYSIS START TIME: 11/13/2017 9:55:00 AM ANALYSIS END TIME: 11/14/2017 9:59:00 AM PATIENT AGE: 47 PATIENT HEIGHT PATIENT WEIGHT DRUG LIST PATIENT DIAGNOSIS: right sided facial weakness TEST NARRATIVE: The patient's average heart rate was 79 BPM. No episodes of tachycardia wer e noted. No episodes of bradycardia were noted. No pauses exceeding 2.0 seconds were noted. No ventricular ectopics were noted. No supraventricular ectopics were noted. No episodes of S T depression (defined as -1.0 mm or more) were noted in channel 1. No episodes of ST depression (def ined as -1.0 mm or more) were noted in channel 2. No episodes of ST depression (defined as -1.0 mm o r more) were noted in channel 3. no diary returned TEST INTERPRETATION: Cardiac patient was monitored for 24 hours and 4 minutes. Patient is in nor mal Sinus rhythm with an average HR of 79 bpm. Periods of sinus bradycaria at 59bpm at 0100. Periods of sinus tachyca rdia to 114 bpm at 1703. 0 PVCs and 0 PACs Signed by : Humberto Ann
[2017-11-14 23:53] LABS: FACTOR VIII(8) ACTIVITY 141 (50-180)
[2017-11-16 03:52] LABS: ANTI-THROMBIN III ACT 111 (80-120)
[2017-11-17 13:53] LABS: DRVVT 1:1 MIX ND (CORRECTED); DRVVT CONFIRM ND (NEGATIVE); HEXAGONAL PHASE CONFIRM ND (NEGATIVE)
== END 2017-11-12 18:25 | disposition home or self-care (01) ==
LOC: NEPD 13:44 → NEDA 19:58 → NEPFCDU 23:36
PROVIDERS: ADMIT Hospitalist; ATTEND Hospitalist
DX: R47.1 Dysarthria and anarthria (principal); F41.1 Generalized anxiety disorder; F33.41 Major depressive disorder, recurrent, in partial remission; G43.109 Migraine with aura, not intractable, without status migrainosus; R29.810 Facial weakness; I45.10 Unspecified right bundle-branch block; R20.0 Anesthesia of skin; R00.0 Tachycardia, unspecified; I49.3 Ventricular premature depolarization; Z79.899 Other long term (current) drug therapy; Z82.3 Family history of stroke
CPT/HCPCS: 70450; 70544; 70548; 70551; 80053; 80061; 81240; 81241; 81291; 82550; 82607; 82746; 84425; 84439; 84443; 84484; 85025; 85240; 85300; 85303; 85306; 85610; 85613; 85652; 85730; 86038; 86147; 86430; 86592; 92522; 93005; 93225; 93226; 97161; 97165; 99285; A9579; G0378; G8987; G8988; G8989; G8999; G9158; G9186

== ENCOUNTER 2018-01-04 07:04 | Day surgery (SDC) | payer OTHER ==
[~2018-01-04 07:04] MED LIST: ASPI81 PO; CLON0.5T PO; DULO1CAP3 PO; SUMA6INJ17 SQ; TOPA50TA7 PO; WELLTAB39 PO
[2018-01-04] MEDS ORDERED: METOPROLOL TARTRATE 25 MG TAB PO PRN (07:45)
[2018-01-04] MEDS ORDERED: POVIDONE IODINE 5% (ANTISEPSIS KIT) 4 APPLICATIONS EACH NARE PRN (07:45)
[2018-01-04] MEDS ORDERED: SODIUM CHLORID 0.9% 500 ML IV PRN (07:45)
[2018-01-04] MEDS ORDERED: LACTATED RINGER'S 1000 ML IV PRN (07:45)
[2018-01-04] MEDS ORDERED: CHLORHEXIDINE GLUCONATE 2 % 1 PACK (2 CLOTHS) TOPICAL PRN (07:45)
[2018-01-04] MEDS ORDERED: NURSING INFORMATION XX PRN (10:15)
--- NOTE | 2018-01-04 11:48 | ECHRPT ---
Indication: CVA/TIA CONCLUSIONS Normal left ventricular size and wall thickness. The left ventricular systolic function is normal wi th an estimated ejection fraction in the range of 60-65%. Left ventricular diastolic function parameters a re normal. Bidirectional atrial level shunt is observed with agitated saline contrast administration. BP: 107 / 73 HR: 77 Rhythm: Technical Quality: Medications Complications Proc. Components The patient was brought to the diagnostic imaging area in a fasting state after o btaining an informed consent. The patient was premedicated with IV Versed and IV Fentanyl. The digester cook ior pharynx was sprayed with Cetacaine spray and the patient was administered viscous Xylocaine 2 %. The ROBERT probe was passed into the posterior pharynx , mid-esophagus, distal esophagus, and gastric fundus. ROBERT was performed at multiple levels. The patient tolerated the procedure well and there were no complications. The patient was transferred to the floor in satisfactory condition.. FINDINGS LEFT VENTRICLE Normal left ventricular size and wall thickness. The left ventricular systolic function is normal wi th an estimated ejection fraction in the range of 60-65%. Left ventricular diastolic function parameters a re normal. RIGHT VENTRICLE Normal right ventricular size and systolic function. LEFT ATRIUM The left atrial size is normal. RIGHT ATRIUM The right atrial size is normal. ATRIAL SEPTUM Normal atrial septal thickness. A patent foramen ovale is present with a bidirectional shunt demonstrated by color flow Doppler interrogation. Bidirectional atrial level shunt is observed with agitated saline contrast administration. AORTA The aortic root and proximal ascending aorta are normal in size on limited imaging. MITRAL VALVE Structurally normal mitral valve. No mitral valve stenosis or regurgitation. AORTIC VALVE Trileaflet aortic valve. No aortic valve stenosis or regurgitation. TRICUSPID VALVE Structurally normal tricuspid valve. There is trace tricuspid valve regurgitation. Pulmonary arteria l systolic pressure could not be estimated due to an insufficient tricuspid valve regurgitation doppler jet for measurement. VESSELS The inferior vena cava is normal in size. PULMONARY VALVE The pulmonary valve is not well visualized. PERICADIUM No pericardial effusion. Eben Galloway MD, FACC (Electronically Signed) Final Date:04 Jan 2018 11:47
--- NOTE | 2018-01-04 18:45 | EKG ---
Date Performed: 01/04/2018 Time Performed: 09:24:12 PTAGE: 47 years EKG: Sinus rhythm . Since the previous tracing, no significant change noted Normal ECG PREVIOUS TRACING : 11/11/2017 14.03 DOCTOR: Humberto Ann Interpretating Date/Time 01/04/2018 18:44:01
== END 2018-01-04 10:58 | disposition home or self-care (01) ==
LOC: HDOC 07:04 → HDIC 07:06 → HDOC 10:58
PROVIDERS: ATTEND Internal Medicine
DX: G45.9 Transient cerebral ischemic attack, unspecified (principal); R00.0 Tachycardia, unspecified; I07.1 Rheumatic tricuspid insufficiency
CPT/HCPCS: 93005; 93312; 93320; 93325